=== PATIENT | male | born 1955 | race Caucasian/White ===

== ENCOUNTER → 2020-11-19 | Outpatient (CLI) | payer OTHER ==
--- NOTE | 2020-11-19 14:36 | DIREP ---
PROCEDURE:CT ABDOMEN/PELVIS W/O CONTRAST COMPARISON:CT, CT ABD/PELVIS W/O, 08/19/2017, 01:23 PM. INDICATIONS:GENERALIZED ABD PAIN TECHNIQUE:Axial images were created through the abdomen and pelvis without intravenous contrast material. No oral contrast was administered. Sagittal and coronal reconstructions were performed from source images. FINDINGS: LUNG BASES:Normal. No visible pulmonary or pleural disease. LIVER:Hepatic cysts-unchanged from August 19 2017. BILIARY:Normal. No visible dilatation or calcification. PANCREAS:Normal. No lesion, fluid collection, ductal dilatation, or atrophy. SPLEEN:Normal. No enlargement or focal lesion. ADRENALS:Normal. No mass or enlargement. URINARY TRACT:1.5 cm x 2.3 cm ovoid lesion of intermediate attenuation off the lower pole of the right kidney. This is slightly larger today than on the previous study dated August 19 2017. This could represent a hemorrhagic cyst but it might also represent a solid lesion. 3 mm x 4 mm nonobstructing calcification in a lower pole calyx of the left kidney. AORTA/VASCULAR:Normal. No aneurysm. RETROPERITONEUM:Normal. No mass or adenopathy. BOWEL/MESENTERY:Normal. There is no intestinal obstruction, free fluid, free air or mesenteric inflammatory changes. ABDOMINAL WALL:Normal. No mass or hernia. PELVIC ORGANS:Normal. No visible mass. Pelvic organs appropriate for patient age. BONES:Severe degenerative disc disease at L5-S1. Left hip arthroplasty. OTHER:Negative. CONCLUSION:1. Interval increase in size of lesion off the lower pole of the right kidney since the previous study dated August 19 2017. It now measures 2.3 cm x 1.5 cm. MRI of the abdomen with and without contrast is recommended for further evaluation. 2. Interval spontaneous passage of left ureteral calculus since the previous study dated August 19 2017. 3. A 3 mm x 4 mm nonobstructing calcification is noted in a lower pole calyx of the left kidney. This has appeared since the previous study dated August 19 2017. 4. Hepatic cysts-unchanged. 5. Left hip arthroplasty. 6. Severe degenerative disc disease at L5-S1. Dictated by: Giovanny Chen M.D. on 11/19/2020 at 02:17 PM
== END | disposition home or self-care (01) ==
LOC: RAD 12:59
PROVIDERS: ATTEND Surgery
DX: M47.817 Spondylosis without myelopathy or radiculopathy, lumbosacral region (principal); R10.84 Generalized abdominal pain
CPT/HCPCS: 74176

== ENCOUNTER 2021-01-03 06:45 | Day surgery (SDC) | payer OTHER ==
[2021-01-02 11:40] VITALS: BP 149/83
--- NOTE | 2021-01-02 11:53 | PCM.EKG ---
[facility] Test Date: 2021-01-02 Test Time: 12:53:27 Pat Name: ALANNAH VALENZUELA Department: Room: Gender: M Postdoctoral Fellow: VALERIA : 1955 Requested By: MIRELA NAVARRO Order Number: [id number] Reading MD: Measurements Intervals Perry Rate: 53 P: 45 MO: 208 QRS: 15 QRSD: 96 T: 16 QT: 434 QTc: 407 Interpretive Statements Sinus bradycardia No previous ECG available for comparison Please click the below link to view image of tracing.
[2021-01-02 12:06] LABS: BASOPHIL # 0.1 10^3/uL (0.0-0.1); BASOPHIL % 1.2 % (0.0-0.2); EOSINOPHIL # 0.1 10^3/uL (0.0-0.2); LYMPHOCYTES # 2.23 10^3/uL1 (1.0-4.8); LYMPHOCYTES % 32.1 % (24.0-44.0); MEAN CORP HGB 25.5 pg (26-34); MONOCYTES # 0.7 10^3/uL (0.3-0.8); MONOCYTES % 10.6 % (5.0-12.0); NEUTROPHIL # 3.8 10^3/uL (1.8-7.7); NEUTROPHILS % 54.1 % (41.0-85.0); PLATELET COUNT 336 10^3/uL (150-400); RED CELL DISTRIBUTION WIDTH 15.4 % (11.5-14.5)
[2021-01-02 12:27] LABS: CALCIUM 10.6 mg/dL (8.4-10.5); CARBON DIOXIDE 25.4 mmol/L (20.0-32)
[~2021-01-03] VITALS: Ht 167.6 cm; Wt 93.9 kg
[2021-01-03] VITALS (10 sets, daily range): BP systolic 124–169; BP diastolic 74–91
[~2021-01-03 06:45] MED LIST: AMLO-170 PO; ASPI-667 PO; FENO145T17 PO; LACTATED RINGERS 1,000 ML IV SCH; LACTATED RINGERS 1,000 ML ONE; LISI1TAB20 PO; LORA10TA75 PO; METO-237 PO; MOVIPREP POWDER PACKET PO ONE; OMEG-69 PO; ROSU40TA PO
[2021-01-03] MEDS ORDERED: DIPRIVAN IV ONE (07:19)
[2021-01-03] MEDS ORDERED: LIDOCAINE 2% VIAL ONE (07:20)
[2021-01-03] MEDS ORDERED: WATER ONE (07:23)
[2021-01-03] MEDS ORDERED: MIRALAX PO ONE (08:59)
--- NOTE | 2021-01-03 09:05 | PRM.OPH ---
Immediate Post Op Report Immediate Post Op Report Imediate Post Op Report Preoperative diagnosis Screening colonoscopy Postoperative diagnose Screening colonoscopy Polyp at 70 cm Procedure 1. Colonoscopy to cecum with multiple cold biopsy at 70 cm and 18 cm 2. Colonoscopy to cecum with snare biopsy at [address] Yi Anesthesia Monitored anesthesia EBL Minimal Specimens Polyp at 70 cm Biopsy of the lining at 18 cm Complications None Prep Poor HANNAH YI MD Jan 03, 2021 09:05
--- NOTE | 2021-01-03 09:12 | PRM.OPH ---
OPERATIVE REPORT OPERATIVE REPORT The patient was initially seen and identified in the preoperative area. After confirming his identity H&P and making sure that all of his questions were answered the patient was transferred from the preop area to the endoscopy suite. Patient was hooked up to appropriate anesthesia monitoring placed into a left lateral decubitus position and given propofol sedation. A digital rectal exam was performed no evidence of any masses were detected. Scope was then inserted into the rectum we could tell based on what he told us preoperatively that there was a dark reddish fluid throughout his colon that had remanence of food. Unsure if this is truly old blood or something else. Does not have the normal texture or appearance of a patient with a GI bleed. The scope was then advanced under insufflation and direct visualization all the way to the cecum. We were able to clean up the area around the ileocecal valve so that we could identify the appendiceal orifice and the ileocecal valve itself and then begin a slow withdrawal while cleaning and examining the colon is to the best of her abilities due to the nature of the prep. We discovered a polyp on a stalk at 70 cm we took a cold biopsy of that polyp and then placed a snare around it amputated and attempted to suck it up through of the scope into a trap. There was no evidence of active ongoing bleeding after snare amputation. Although examination of the tract does not reveal any evidence of a polyp but we were getting remanence of food. We continue to work her way back there was no evidence of any polyps once we got back into this sigmoid colon. As we continue to advance back towards the rectum there was an area underlying pulsating artery that had an unusual appearance and the lining therefore was biopsied with cold biopsy forceps. There was no evidence of active bleeding after biopsy. The scope was then withdrawn back into the rectum retroflexed and the hemorrhoidal tissue was examined. Scope was then taken back into normal position as much of the rectum and colon could be evacuated was and scope was withdrawn. Patient will be handed back to anesthesia to be awakened from monitored anesthesia and nursing to clean up the patient and transferred to PACU. The patient has tolerated the procedure well. Once in the PACU and awake we will have the nurses strain his stool to see if we can get the remaining portion of the polyp that was not able to be recovered. HANNAH SEALS MD Jan 03, 2021 09:12
== END 2021-01-03 11:20 | disposition home or self-care (01) ==
LOC: SDC 06:45
PROVIDERS: ATTEND Surgery
DX: Z12.11 Encounter for screening for malignant neoplasm of colon (principal); D12.4 Benign neoplasm of descending colon; I10 Essential (primary) hypertension; E78.5 Hyperlipidemia, unspecified; E66.3 Overweight; I48.91 Unspecified atrial fibrillation; J45.909 Unspecified asthma, uncomplicated; I25.10 Atherosclerotic heart disease of native coronary artery without angina pectoris; F41.9 Anxiety disorder, unspecified; Z82.49 Family history of ischemic heart disease and other diseases of the circulatory system; Z90.49 Acquired absence of other specified parts of digestive tract; Z98.890 Other specified postprocedural states; Z80.9 Family history of malignant neoplasm, unspecified; Z79.899 Other long term (current) drug therapy; Z79.82 Long term (current) use of aspirin; Z80.6 Family history of leukemia
CPT/HCPCS: 36415; 45380; 45385; 80053; 85025; 85610; 85730; 88305; 93005; J2001; J3490; J7120

== ENCOUNTER → 2021-05-15 | Outpatient (CLI) | payer OTHER ==
[~2021-05-15] MED LIST changes: -LACTATED RINGERS 1,000 ML IV SCH; -LACTATED RINGERS 1,000 ML ONE; -MOVIPREP POWDER PACKET PO ONE
--- NOTE | 2021-05-15 16:07 | DIREP ---
PROCEDURE:MRI ABDOMEN W & W/O CONTRAST COMPARISON:[facility], CT, CT ABD/PELVIS W/O, 11/19/2020, 01:39 PM. INDICATIONS:R10.84 ABD PAIN TECHNIQUE:A comprehensive examination was performed utilizing a variety of imaging planes and imaging parameters to optimize visualization of suspected pathology. Images were obtained both before and after intravenous gadolinium infusion. FINDINGS: LIVER:Incompletely imaged on multiple sequences. Multiple nonenhancing T2 hyperintensities are compatible with cysts. No significant steatosis. BILIARY:Normal. PANCREAS:Normal. SPLEEN:Incompletely imaged on multiple sequences. Grossly unremarkable. KIDNEYS:There is a T1 hypointense T2 hyperintense exophytic right lower pole lesion measuring 2.3 x 2.1 x 2.2 cm with small amount of layering intrinsic T1 hyperintensity, but no appreciable enhancement. Findings are consistent with a hemorrhagic/proteinaceous cyst. No enhancing renal mass identified. The kidneys enhance symmetrically without hydronephrosis. ADRENALS:Normal. AORTA/VASCULAR:Mild atheromatous changes of the abdominal aorta. No aneurysm. RETROPERITONEUM:Normal. BOWEL/MESENTERY:Normal. ABDOMINAL WALL:Normal. BONES:Normal. CONCLUSION: 1. Hemorrhagic/proteinaceous right lower pole renal cyst. No enhancing renal mass. 2. No findings to explain the patient's abdominal pain. 3. Hepatic cysts and other incidental findings as above. Dictated by: Isac Borges M.D. on 05/15/2021 at 03:55 PM
== END | disposition home or self-care (01) ==
LOC: RAD 13:40
PROVIDERS: ATTEND Surgery
DX: N28.1 Cyst of kidney, acquired (principal); I70.0 Atherosclerosis of aorta; K76.89 Other specified diseases of liver
CPT/HCPCS: 74183; A9579